=== PATIENT | male | born 1975 | race African-American/Black ===

== ENCOUNTER 2023-12-16 15:41 | Emergency (ER) | payer OTHER ==
[~2023-12-16] VITALS: Ht 182.9 cm; Wt 113.4 kg
[~2023-12-16 15:41] MED LIST: HYDR-5071 PO; IBUP-2218 PO
[2023-12-16 15:56] VITALS: BP 98/69; PULSE 106; RESP 16; TEMP 98; O2SAT 97
[2023-12-16] MEDS ORDERED: HAL5 PO (17:48)
[2023-12-16] MEDS ORDERED: LORA10TA19 PO (17:48)
[2023-12-16] MEDS ORDERED: LOSA-272 PO (17:48)
[2023-12-16] MEDS ORDERED: ESK300 PO ×2 (17:48)
[2023-12-16] MEDS ORDERED: OMEP20EC11 PO (17:48)
[2023-12-16] MEDS ORDERED: RISP0.5T3 PO (17:48)
[2023-12-16] MEDS ORDERED: DOCU-300 PO (17:48)
[2023-12-16] MEDS ORDERED: BENZ-283 PO (17:48)
[2023-12-16] MEDS ORDERED: QUET400T PO (17:48)
[2023-12-16] MEDS ORDERED: HAL2L IM (17:48)
[2023-12-16] MEDS ORDERED: CLON2TAB9 PO (17:48)
[2023-12-16] MEDS ORDERED: DIVA500T1 PO (17:48)
[2023-12-16] MEDS ORDERED: TRAZ-343 PO (17:48)
[2023-12-16] MEDS ORDERED: QUET200T PO (17:48)
[2023-12-16] MEDS ORDERED: [UNRECOGNIZED DRUG - CODE] PO (17:48)
[2023-12-16 18:03] LABS: BASOPHILS % (AUTO) 0.2 % (0.0-2.0); EOSINOPHILS % (AUTO) 0.4 % (0.0-4.0); HEMOGLOBIN 11.2 g/dL (12.0-18.0); LYMPHOCYTES # (AUTO) 1.6 K/uL (2.0-11.5); LYMPHOCYTES % (AUTO) 15.6 % (20.5-51.1); MEAN CORPUSCULAR HEMOGLOBIN 33 pg (27-31); MEAN CORPUSCULAR HGB CONC 34 g/dL (33-37); MEAN CORPUSCULAR VOLUME 96.9 fL (80-94); MONOCYTES # (AUTO) 1.7 K/uL (0.8-1.0); MONOCYTES % (AUTO) 16.7 % (1.7-9.3); NEUTROPHILS # (AUTO) 6.8 K/uL (1.8-7.7); NEUTROPHILS % (AUTO) 67.1 % (42.2-75.2); PLATELET COUNT (AUTO) 354 K/uL (140-450); RED BLOOD CELL COUNT(AUTO) 3.41 MIL/uL (4.20-6.10); RED CELL DISTRIBUTION WIDTH 13.1 % (11.6-13.7); WHITE BLOOD COUNT (AUTO) 10.1 K/uL (4.8-10.8)
[2023-12-16 18:07] LABS: APPEARANCE,URINE CLEAR (CLEAR); BILIRUBIN,URINE 2+ (NEGATIVE); BLOOD, URINE TRACE-I (NEGATIVE); COLOR,URINE YELLOW (YELLOW); LEUKOCYTE ESTERASE ,URINE 1+ (NEGATIVE); NITRITE, URINE POSITIVE (NEGATIVE); PROTEIN,URINE 2+ (NEGATIVE); UGLUCOSE NEGATIVE (NEGATIVE)
[2023-12-16 18:18] LABS: ICTOTEST NEGATIVE (NEGATIVE)
[2023-12-16 18:19] LABS: ALANINE AMINOTRANSFERASE 17 U/L (12-78); ALBUMIN 2.9 g/dL (3.4-5.0); ALKALINE PHOSPHATASE 147 U/L (50-136); ASPARTATE AMINOTRANSFERASE 25 U/L (15-37); BILIRUBIN,DIRECT 0.1 mg/dL (0.0-0.3); LIPASE 19 U/L (16-77); TOTAL BILIRUBIN 0.4 mg/dL (0.0-1.0); TOTAL PROTEIN, SERUM 7.3 g/dL (6.4-8.2)
[2023-12-16 18:20] LABS: BACTERIA,URINE 10-30 (MOD) /HPF (None Seen); RBC,URINE 0-5 /HPF (0-5); SQUAMOUS EPITHELIAL CELL,UR 4-10 (MOD) /LPF (0-3 (FEW))
[2023-12-16 18:25] LABS: ANION GAP 6.5 (8-16); CALCIUM 9.2 mg/dL (8.5-10.1); CARBON DIOXIDE 32.6 mmol/L (21-32); CREATININE 1.4 mg/dL (0.6-1.3); POTASSIUM 4.1 mmol/L (3.5-5.1)
[2023-12-16] MEDS ORDERED: AZIT250T4 PO (19:30)
[2023-12-16] MEDS ORDERED: MAGN296S70 PO (19:30)
[2023-12-16] MEDS ORDERED: CIPR500T4 PO (19:30)
[2023-12-16 20:00] VITALS: BP 116/68; PULSE 98; RESP 25; TEMP 98; O2SAT 100
== END 2023-12-16 20:00 | disposition home or self-care (01) ==
LOC: MED 15:41
DX: J18.9 Pneumonia, unspecified organism (principal); N39.0 Urinary tract infection, site not specified; K59.00 Constipation, unspecified; R41.0 Disorientation, unspecified; I10 Essential (primary) hypertension; Z79.899 Other long term (current) drug therapy
CPT/HCPCS: 36415; 70450; 71045; 80048; 80076; 81001; 83690; 84484; 85025; 87086; 87186; 93005; 99285

== ENCOUNTER 2023-12-21 13:03 | Observation (INO) | payer OTHER ==
[~2023-12-21] VITALS: Ht 177.8 cm; Wt 113.4 kg
[~2023-12-21 13:03] MED LIST changes: +AZIT250T4 PO; +BENZ-283 PO; +CIPR500T4 PO; +CLON2TAB9 PO; +DIVA500T1 PO; +DOCU-300 PO; +ESK300 PO; +HAL2L IM; +HAL5 PO; +LORA10TA19 PO; +LOSA-272 PO; +MAGN296S70 PO; +OMEP20EC11 PO; +QUET200T PO; +QUET400T PO; +RISP0.5T3 PO; +TRAZ-343 PO; +[UNRECOGNIZED DRUG - CODE] PO
[2023-12-21 13:17] VITALS: BP 151/102; PULSE 97; RESP 25; TEMP 96.4; O2SAT 96
[2023-12-21] MEDS ORDERED: cefTRIAXone 1,000 MG VIAL ONE (13:30)
[2023-12-21] MEDS: cefTRIAXone 1,000 MG in DEXT 5% MINI-BAG PLUS 50 ML IV ONE (13:54)
[2023-12-21] MEDS: NACL 0.9% 1,000 ML IV SCH ×2 (13:55→17:03)
[2023-12-21 14:13] LABS: BASOPHILS % (AUTO) 0.5 % (0.0-2.0); EOSINOPHILS # (AUTO) 0.1 K/uL (0-0.4); EOSINOPHILS % (AUTO) 1.1 % (0.0-4.0); HEMATOCRIT 33.2 % (36-52); HEMOGLOBIN 11.2 g/dL (12.0-18.0); LYMPHOCYTES # (AUTO) 1.3 K/uL (2.0-11.5); LYMPHOCYTES % (AUTO) 14.9 % (20.5-51.1); MEAN CORPUSCULAR HEMOGLOBIN 33 pg (27-31); MEAN CORPUSCULAR HGB CONC 34 g/dL (33-37); MEAN CORPUSCULAR VOLUME 97.1 fL (80-94); MONOCYTES % (AUTO) 12.4 % (1.7-9.3); NEUTROPHILS % (AUTO) 71.1 % (42.2-75.2); PLATELET COUNT (AUTO) 299 K/uL (140-450); RED BLOOD CELL COUNT(AUTO) 3.43 MIL/uL (4.20-6.10); RED CELL DISTRIBUTION WIDTH 12.8 % (11.6-13.7); WHITE BLOOD COUNT (AUTO) 8.4 K/uL (4.8-10.8)
[2023-12-21 14:40] LABS: ANION GAP 7.8 (8-16); CALCIUM 8.7 mg/dL (8.5-10.1); CARBON DIOXIDE 30.8 mmol/L (21-32); POTASSIUM 4.6 mmol/L (3.5-5.1)
[2023-12-21 14:52] LABS: LACTIC ACID 2.1 mmol/L (0.4-2.0)
[2023-12-21 14:59] LABS: BILIRUBIN,URINE NEGATIVE (NEGATIVE); BLOOD, URINE NEGATIVE (NEGATIVE); COLOR,URINE YELLOW (YELLOW); LEUKOCYTE ESTERASE ,URINE NEGATIVE (NEGATIVE); NITRITE, URINE NEGATIVE (NEGATIVE); PROTEIN,URINE 1+ (NEGATIVE); UGLUCOSE NEGATIVE (NEGATIVE)
[2023-12-21 15:01] LABS: APPEARANCE,URINE SLIGHTLY HAZY (CLEAR)
[2023-12-21 15:03] LABS: BACTERIA,URINE 0-2 /HPF (None Seen); MUCUS,URINE None Seen /LPF (None Seen); RBC,URINE 0-5 /HPF (0-5); SQUAMOUS EPITHELIAL CELL,UR 0-3 (FEW) /LPF (0-3 (FEW)); WBC,URINE 0 /HPF (0-5)
[2023-12-21] MEDS: NACL 0.9% 1,000 ML IV ONE (15:26)
[2023-12-21] MEDS ORDERED: MAG SULF 2000 MG/WATER PREMIX 50 ML IV PRN (16:15)
[2023-12-21] MEDS ORDERED: ONDANSETRON 4 MG/2 ML VIAL IVP PRN (16:15)
[2023-12-21] MEDS ORDERED: MORPHINE SULFATE 4 MG/ML SYR IVP PRN (16:15)
[2023-12-21] MEDS ORDERED: HYDROcodone/APAP 5/325 MG 1 TAB TAB PO PRN (16:15)
[2023-12-21] MEDS ORDERED: MAGNESIUM OXIDE 400 MG TAB PO PRN (16:15)
[2023-12-21] MEDS ORDERED: KCL 20 MEQ IN 100 mL PREMIX 200 ML IV PRN (16:15)
[2023-12-21] MEDS ORDERED: POTASSIUM CHLORIDE 10 MEQ TABER PO PRN (16:15)
[2023-12-21 16:29] LABS: FLU A ANTIGEN negative (NEGATIVE); FLU B ANTIGEN NEGATIVE (NEGATIVE)
[2023-12-21] MEDS ORDERED: AZITHROMYCIN 500 MG INJ VIAL IV ONE (16:55)
[2023-12-21] MEDS: AZITHROMYCIN 500 MG in DEXTROSE 5% 250 ML IV SCH (16:57)
[2023-12-21 18:14] VITALS: PULSE 94
[2023-12-21 19:00] VITALS: PULSE 91; RESP 21; O2SAT 95
[2023-12-21 20:00] VITALS: BP 121/78; PULSE 91; RESP 19; TEMP 96.8; O2SAT 97
[2023-12-21 20:03] VITALS: PULSE 88
[2023-12-22] VITALS (8 sets, daily range): BP systolic 121–140; BP diastolic 57–90; PULSE 88–107; RESP 18–19; TEMP 97.2–99; O2SAT 97–99
[2023-12-22 05:14] LABS: BASOPHILS % (AUTO) 0.4 % (0.0-2.0); EOSINOPHILS # (AUTO) 0.2 K/uL (0-0.4); EOSINOPHILS % (AUTO) 3.4 % (0.0-4.0); HEMATOCRIT 33.5 % (36-52); HEMOGLOBIN 11.2 g/dL (12.0-18.0); LYMPHOCYTES # (AUTO) 1.7 K/uL (2.0-11.5); LYMPHOCYTES % (AUTO) 30.9 % (20.5-51.1); MEAN CORPUSCULAR HEMOGLOBIN 33 pg (27-31); MEAN CORPUSCULAR HGB CONC 33 g/dL (33-37); MEAN CORPUSCULAR VOLUME 97.2 fL (80-94); MONOCYTES # (AUTO) 0.8 K/uL (0.8-1.0); MONOCYTES % (AUTO) 15.1 % (1.7-9.3); NEUTROPHILS # (AUTO) 2.8 K/uL (1.8-7.7); NEUTROPHILS % (AUTO) 50.2 % (42.2-75.2); PLATELET COUNT (AUTO) 292 K/uL (140-450); RED BLOOD CELL COUNT(AUTO) 3.45 MIL/uL (4.20-6.10); RED CELL DISTRIBUTION WIDTH 13.1 % (11.6-13.7); WHITE BLOOD COUNT (AUTO) 5.5 K/uL (4.8-10.8)
[2023-12-22 05:34] LABS: ALBUMIN 2.8 g/dL (3.4-5.0); CALCIUM 8.5 mg/dL (8.5-10.1); CARBON DIOXIDE 26.2 mmol/L (21-32); CREATININE 0.9 mg/dL (0.6-1.3); MAGNESIUM 2.1 mg/dL (1.8-2.4); POTASSIUM 4.2 mmol/L (3.5-5.1); TOTAL BILIRUBIN 0.3 mg/dL (0.0-1.0); TOTAL PROTEIN, SERUM 6.8 g/dL (6.4-8.2)
[2023-12-22] MEDS ORDERED: LEVO-481 PO (16:40)
[2023-12-22] MEDS ORDERED: MEDS-TO-BEDS MC SCH (21:00)
== END 2023-12-22 19:00 | disposition home or self-care (01) ==
LOC: MED 13:03 → MTU 16:17
PROVIDERS: ADMIT Hospitalist; ATTEND Hospitalist
DX: G93.40 Encephalopathy, unspecified (principal); Z20.822 Contact with and (suspected) exposure to COVID-19; J18.1 Lobar pneumonia, unspecified organism; F20.9 Schizophrenia, unspecified; I10 Essential (primary) hypertension; E87.20 Acidosis, unspecified; Z79.899 Other long term (current) drug therapy
CPT/HCPCS: 36415; 70450; 71045; 80048; 80053; 81001; 83605; 83735; 83880; 84484; 85025; 87040; 87081; 87086; 87426; 87804; 93005; 94760; 96361; 96365; 96366; 96367; 96372; 97163; 97530; 99291; G0378; J0456; J0696; J1644; J7060

== ENCOUNTER 2023-12-29 13:24 | Emergency (ER) | payer OTHER ==
[~2023-12-29] VITALS: Ht 180.3 cm; Wt 112.5 kg
[~2023-12-29 13:24] MED LIST changes: -AZIT250T4 PO; -CIPR500T4 PO; +LEVO-481 PO
[2023-12-29 13:30] VITALS: BP 125/70; PULSE 107; RESP 16; TEMP 98.1; O2SAT 98
[2023-12-29] MEDS: NACL 0.9% 1,000 ML IV ONE (13:40)
[2023-12-29 14:06] LABS: BASOPHILS % (AUTO) 0.5 % (0.0-2.0); EOSINOPHILS # (AUTO) 0.1 K/uL (0-0.4); EOSINOPHILS % (AUTO) 2.1 % (0.0-4.0); HEMATOCRIT 33.7 % (36-52); HEMOGLOBIN 11.2 g/dL (12.0-18.0); LYMPHOCYTES # (AUTO) 1.3 K/uL (2.0-11.5); LYMPHOCYTES % (AUTO) 31.5 % (20.5-51.1); MEAN CORPUSCULAR HEMOGLOBIN 32 pg (27-31); MEAN CORPUSCULAR HGB CONC 33 g/dL (33-37); MEAN CORPUSCULAR VOLUME 96.5 fL (80-94); MONOCYTES # (AUTO) 0.7 K/uL (0.8-1.0); MONOCYTES % (AUTO) 17.9 % (1.7-9.3); PLATELET COUNT (AUTO) 239 K/uL (140-450); RED BLOOD CELL COUNT(AUTO) 3.49 MIL/uL (4.20-6.10); RED CELL DISTRIBUTION WIDTH 13.1 % (11.6-13.7); WHITE BLOOD COUNT (AUTO) 4.1 K/uL (4.8-10.8)
[2023-12-29 14:25] LABS: INR 0.99 (0.8-1.2); PARTIAL THROMBOPLASTIN TIME 26.6 secs (22-35.6); PROTHROMBIN TIME 10.4 secs (10.8-13.4)
[2023-12-29 14:29] LABS: LACTIC ACID 1.3 mmol/L (0.4-2.0)
[2023-12-29 14:31] LABS: ALANINE AMINOTRANSFERASE 21 U/L (12-78); ALBUMIN 2.7 g/dL (3.4-5.0); ALKALINE PHOSPHATASE 149 U/L (50-136); ASPARTATE AMINOTRANSFERASE 17 U/L (15-37); BILIRUBIN,DIRECT 0.1 mg/dL (0.0-0.3); CREATINE KINASE, TOTAL 70 U/L (39-308); TOTAL BILIRUBIN 0.3 mg/dL (0.0-1.0); TOTAL PROTEIN, SERUM 7.3 g/dL (6.4-8.2)
[2023-12-29 14:32] LABS: ALCOHOL, BLOOD < 3 mg/dL (<10)
[2023-12-29 14:35] LABS: FLU A ANTIGEN negative (NEGATIVE); FLU B ANTIGEN negative (NEGATIVE)
[2023-12-29 14:49] LABS: ANION GAP 10.7 (8-16); CALCIUM 8.8 mg/dL (8.5-10.1); CARBON DIOXIDE 27.6 mmol/L (21-32); POTASSIUM 4.3 mmol/L (3.5-5.1)
[2023-12-29 15:54] LABS: APPEARANCE,URINE CLEAR (CLEAR); BILIRUBIN,URINE NEGATIVE (NEGATIVE); BLOOD, URINE TRACE-I (NEGATIVE); COLOR,URINE YELLOW (YELLOW); LEUKOCYTE ESTERASE ,URINE NEGATIVE (NEGATIVE); NITRITE, URINE NEGATIVE (NEGATIVE); PH,URINE 7.5 (5.0-9.0); PROTEIN,URINE NEGATIVE (NEGATIVE); UGLUCOSE NEGATIVE (NEGATIVE); UROBILINOGEN,URINE 0.2 EU/dL (0.2 - 1)
[2023-12-29 16:21] LABS: BACTERIA,URINE FEW /HPF (None Seen); RBC,URINE 0-5 /HPF (0-5); SQUAMOUS EPITHELIAL CELL,UR 0-3 (FEW) /LPF (0-3 (FEW)); WBC,URINE 0-5 /HPF (0-5)
[2023-12-29 17:15] VITALS: BP 122/80; PULSE 91; RESP 19; TEMP 98.1; O2SAT 96
== END 2023-12-29 17:16 | disposition home or self-care (01) ==
LOC: MED 13:24
DX: F29 Unspecified psychosis not due to a substance or known physiological condition (principal); Z20.822 Contact with and (suspected) exposure to COVID-19; K21.9 Gastro-esophageal reflux disease without esophagitis; Z79.899 Other long term (current) drug therapy; I10 Essential (primary) hypertension
CPT/HCPCS: 36415; 70450; 71045; 80048; 80076; 81001; 82140; 82550; 82948; 83605; 83880; 84484; 85025; 85610; 85730; 87040; 87086; 87426; 87804; 93005; 96360; 99285; G0482; J7030

== ENCOUNTER 2024-01-02 12:13 | Inpatient (IN) | payer OTHER ==
[~2024-01-02] VITALS: Ht 180.3 cm; Wt 118.8 kg
[2024-01-02 12:17] VITALS: BP 149/88; PULSE 100; RESP 16; TEMP 97.4; O2SAT 98
[2024-01-02 14:09] LABS: ANION GAP 10.9 (8-16); BASOPHILS % (AUTO) 0.6 % (0.0-2.0); CALCIUM 8.9 mg/dL (8.5-10.1); CHLORIDE 103 mmol/L (98-107); CREATININE 0.8 mg/dL (0.6-1.3); EOSINOPHILS # (AUTO) 0.1 K/uL (0-0.4); EOSINOPHILS % (AUTO) 3.1 % (0.0-4.0); GFR ARICAN-AMERICAN 132 mL/min (>90); GFR NON ARICAN-AMERICAN 109 mL/min (>90); GLUCOSE 94 mg/dL (74-106); HEMOGLOBIN 11.5 g/dL (12.0-18.0); LYMPHOCYTES # (AUTO) 1.2 K/uL (2.0-11.5); MEAN CORPUSCULAR HEMOGLOBIN 32 pg (27-31); MEAN CORPUSCULAR HGB CONC 33 g/dL (33-37); MEAN CORPUSCULAR VOLUME 98.2 fL (80-94); MONOCYTES # (AUTO) 0.8 K/uL (0.8-1.0); MONOCYTES % (AUTO) 20.7 % (1.7-9.3); NEUTROPHILS # (AUTO) 1.8 K/uL (1.8-7.7); NEUTROPHILS % (AUTO) 45.6 % (42.2-75.2); PLATELET COUNT (AUTO) 212 K/uL (140-450); POTASSIUM 4.9 mmol/L (3.5-5.1); RED BLOOD CELL COUNT(AUTO) 3.57 MIL/uL (4.20-6.10); RED CELL DISTRIBUTION WIDTH 13.7 % (11.6-13.7); SODIUM SERUM 137 mmol/L (136-145); UREA NITROGEN, BLOOD 5 mg/dL (7-18); WHITE BLOOD COUNT (AUTO) 3.9 K/uL (4.8-10.8)
[2024-01-02 14:32] LABS: LACTIC ACID 1.7 mmol/L (0.4-2.0)
[2024-01-02] MEDS ORDERED: cefTRIAXone 1,000 MG VIAL ONE (14:35)
[2024-01-02 14:55] LABS: ALANINE AMINOTRANSFERASE 12 U/L (12-78); ALBUMIN 2.8 g/dL (3.4-5.0); ALKALINE PHOSPHATASE 169 U/L (50-136); ASPARTATE AMINOTRANSFERASE 25 U/L (15-37); TOTAL BILIRUBIN 0.3 mg/dL (0.0-1.0); TOTAL PROTEIN, SERUM 7.4 g/dL (6.4-8.2)
[2024-01-02 14:56] LABS: ACETAMINOPHEN < 0.5 ug/ml (10-30); ALCOHOL, BLOOD < 3 mg/dL (<10); SALICYLATE < 2.8 mg/dL (2.8-20.0)
[2024-01-02] MEDS ORDERED: VANCOMYCIN PER PHARMACY MC PRN (15:15)
[2024-01-02] MEDS ORDERED: ONDANSETRON 4 MG/2 ML VIAL IVP PRN (15:15)
[2024-01-02] MEDS ORDERED: KCL 20 MEQ IN 100 mL PREMIX 200 ML IV PRN (15:15)
[2024-01-02] MEDS ORDERED: LORazepam 1 MG TAB PO PRN (15:15)
[2024-01-02] MEDS ORDERED: ACETAMINOPHEN 325 MG TAB PO PRN (15:15)
[2024-01-02] MEDS ORDERED: HYDROcodone/APAP 5/325 MG 1 TAB TAB PO PRN (15:15)
[2024-01-02] MEDS ORDERED: POTASSIUM CHLORIDE 10 MEQ TABER PO PRN (15:15)
[2024-01-02] MEDS ORDERED: ZOLPIDEM 5 MG TAB PO PRN (15:15)
[2024-01-02] MEDS ORDERED: MAG SULF 2000 MG/WATER PREMIX 50 ML IV PRN (15:15)
[2024-01-02] MEDS: NACL 0.9% 1,000 ML IV SCH (15:45)
[2024-01-02] MEDS: MORPHINE SULFATE 4 MG/ML SYR IVP PRN (15:53)
[2024-01-02] MEDS ORDERED: ACET-9520 PO (17:33)
[2024-01-02] MEDS ORDERED: CHOL100030 PO (17:33)
[2024-01-02] MEDS ORDERED: ALBU0.0912 IH (17:33)
[2024-01-02] MEDS ORDERED: [UNRECOGNIZED DRUG - CODE] PO (17:33)
[2024-01-02] MEDS ORDERED: [UNRECOGNIZED DRUG - CODE] NS (17:33)
[2024-01-02] MEDS ORDERED: METH-1681 PO (17:33)
[2024-01-02] MEDS ORDERED: PROM473S5 PO (17:33)
[2024-01-02] MEDS ORDERED: POLY17PD65 PO (17:33)
[2024-01-02] MEDS ORDERED: ASPI-1822 PO (17:33)
[2024-01-02] MEDS ORDERED: BACI-418 TP (17:33)
[2024-01-02] MEDS: AZITHROMYCIN 500 MG in DEXTROSE 5% 250 ML IV SCH (18:35)
[2024-01-02 19:00] VITALS: PULSE 84; RESP 20; O2SAT 97
[2024-01-02 19:22] VITALS: BP 118/60; PULSE 84; RESP 18; TEMP 98.5; O2SAT 97
[2024-01-02] MEDS: VANCOMYCIN 1.25GM PREMIX 250 ML IV SCH (20:50)
[2024-01-03] MEDS: PIPERACILLIN/TAZOBACTAM 3.375 GM in DEXTROSE 5% 50 ML IV SCH
[2024-01-03] MEDS: PIPERACILLIN/TAZOBACTAM 3.375 GM VIAL IV ONE ×2 (00:32→06:23)
[2024-01-03 04:00] VITALS: BP 110/61; PULSE 84; RESP 18; TEMP 98.3; O2SAT 97
[2024-01-03 05:11] LABS: APPEARANCE,URINE CLEAR (CLEAR); BILIRUBIN,URINE NEGATIVE (NEGATIVE); BLOOD, URINE NEGATIVE (NEGATIVE); COLOR,URINE YELLOW (YELLOW); LEUKOCYTE ESTERASE ,URINE NEGATIVE (NEGATIVE); NITRITE, URINE NEGATIVE (NEGATIVE); PH,URINE 6.5 (5.0-9.0); PROTEIN,URINE NEGATIVE (NEGATIVE); UGLUCOSE NEGATIVE (NEGATIVE); UROBILINOGEN,URINE 0.2 EU/dL (0.2 - 1)
[2024-01-03 05:17] LABS: BASOPHILS % (AUTO) 0.5 % (0.0-2.0); EOSINOPHILS # (AUTO) 0.1 K/uL (0-0.4); EOSINOPHILS % (AUTO) 4.1 % (0.0-4.0); HEMATOCRIT 34.1 % (36-52); LYMPHOCYTES # (AUTO) 1.5 K/uL (2.0-11.5); LYMPHOCYTES % (AUTO) 41.2 % (20.5-51.1); MEAN CORPUSCULAR HEMOGLOBIN 32 pg (27-31); MEAN CORPUSCULAR HGB CONC 32 g/dL (33-37); MEAN CORPUSCULAR VOLUME 98.8 fL (80-94); MONOCYTES # (AUTO) 0.7 K/uL (0.8-1.0); MONOCYTES % (AUTO) 19.8 % (1.7-9.3); NEUTROPHILS # (AUTO) 1.2 K/uL (1.8-7.7); NEUTROPHILS % (AUTO) 34.4 % (42.2-75.2); PLATELET COUNT (AUTO) 189 K/uL (140-450); RED BLOOD CELL COUNT(AUTO) 3.45 MIL/uL (4.20-6.10); RED CELL DISTRIBUTION WIDTH 13.7 % (11.6-13.7); WHITE BLOOD COUNT (AUTO) 3.5 K/uL (4.8-10.8)
[2024-01-03 05:25] LABS: AMPHETAMINE, URINE NEGATIVE ng/ml (NEG <=1000); BARBITURATE, URINE NEGATIVE ng/ml (NEG <=200); BENZODIAZEPINE, URINE NEGATIVE ng/mL (NEG <=200); CANNABINOID, URINE NEGATIVE ng/mL (NEG <=50); COCAINE, URINE NEGATIVE ng/mL (NEG <=300); OPIATE, URINE POSITIVE ng/mL (NEG <=2000); PHENCYCLIDINE SCREEN,URINE NEGATIVE ng/mL (NEG <=25)
[2024-01-03 05:32] LABS: ANION GAP 11.3 (8-16); CALCIUM 8.6 mg/dL (8.5-10.1); CARBON DIOXIDE 27.5 mmol/L (21-32); CREATININE 0.8 mg/dL (0.6-1.3); POTASSIUM 4.8 mmol/L (3.5-5.1)
[2024-01-03 08:00] VITALS: BP 121/79; PULSE 94; RESP 18; TEMP 97.2; O2SAT 97
[2024-01-03 08:30] VITALS: RESP 16
[2024-01-03] MEDS: HALOPERIDOL 5 MG TAB PO SCH (09:38)
[2024-01-03] MEDS: QUEtiapine FUMARATE 100 MG TAB PO SCH ×2 (09:38→21:50)
[2024-01-03] MEDS: DIVALPROEX 500 MG TABER PO SCH (09:39)
[2024-01-03] MEDS: LITHIUM CARBONATE 300 MG TAB PO SCH ×2 (09:39→18:38)
[2024-01-03] MEDS: DOCUSATE SODIUM 100 MG GELCAP PO SCH (09:39)
[2024-01-03] MEDS: ENOXAPARIN 40 MG/0.4 ML SYR SUBQ SCH (09:43)
[2024-01-03] MEDS: ASPIRIN 81 MG TAB.CHEW PO SCH (09:45)
[2024-01-03 12:00] VITALS: BP 119/66; PULSE 88; RESP 17; TEMP 98.1; O2SAT 98
[2024-01-03 16:00] VITALS: BP 126/72; PULSE 96; RESP 17; TEMP 96.7; O2SAT 98
[2024-01-03 20:00] VITALS: BP 145/86; PULSE 102; RESP 19; TEMP 98.4; O2SAT 95
[2024-01-03] MEDS: risperiDONE 1 MG TAB PO SCH (21:49)
[2024-01-03] MEDS: traZODone 50 MG TAB PO SCH (21:49)
[2024-01-03] MEDS: MEDS-TO-BEDS MC SCH (21:51)
[2024-01-04 04:00] VITALS: BP 128/83; PULSE 93; RESP 19; TEMP 97.3; O2SAT 99
[2024-01-04 04:14] LABS: BASOPHILS % (AUTO) 0.5 % (0.0-2.0); EOSINOPHILS # (AUTO) 0.1 K/uL (0-0.4); EOSINOPHILS % (AUTO) 3.3 % (0.0-4.0); HEMATOCRIT 33.5 % (36-52); HEMOGLOBIN 10.9 g/dL (12.0-18.0); LYMPHOCYTES # (AUTO) 1.6 K/uL (2.0-11.5); LYMPHOCYTES % (AUTO) 37.5 % (20.5-51.1); MEAN CORPUSCULAR HEMOGLOBIN 32 pg (27-31); MEAN CORPUSCULAR HGB CONC 33 g/dL (33-37); MEAN CORPUSCULAR VOLUME 96.5 fL (80-94); MONOCYTES # (AUTO) 0.9 K/uL (0.8-1.0); MONOCYTES % (AUTO) 19.9 % (1.7-9.3); NEUTROPHILS # (AUTO) 1.7 K/uL (1.8-7.7); NEUTROPHILS % (AUTO) 38.8 % (42.2-75.2); PLATELET COUNT (AUTO) 195 K/uL (140-450); RED BLOOD CELL COUNT(AUTO) 3.47 MIL/uL (4.20-6.10); RED CELL DISTRIBUTION WIDTH 13.5 % (11.6-13.7); WHITE BLOOD COUNT (AUTO) 4.4 K/uL (4.8-10.8)
[2024-01-04 04:44] LABS: ANION GAP 10.1 (8-16); CARBON DIOXIDE 30.3 mmol/L (21-32); CREATININE 0.9 mg/dL (0.6-1.3); POTASSIUM 4.4 mmol/L (3.5-5.1)
[2024-01-04 08:00] VITALS: BP 147/69; PULSE 97; RESP 18; TEMP 96.8; O2SAT 99
[2024-01-04] MEDS ORDERED: HYDRAGUARD CREAM TP PRN (10:10)
[2024-01-04] MEDS: HYDRAGUARD CREAM TP SCH (13:54)
[2024-01-04] MEDS ORDERED: AMOX-1230 PO (14:06)
[2024-01-04] MEDS ORDERED: DOXY-690 PO (14:08)
[2024-01-04 15:32] VITALS: BP 147/69; PULSE 97; RESP 18; TEMP 96.9
[2024-01-09] MEDS ORDERED: GAUZE TP SCH (09:00)
== END 2024-01-04 17:32 | disposition home or self-care (01) | DRG 721 ==
LOC: MED 12:13 → MMU 15:14 → MTU 17:30
PROVIDERS: ADMIT Internal Medicine; ATTEND Internal Medicine
DX: T81.40XA Infection following a procedure, unspecified, initial encounter (principal); J69.0 Pneumonitis due to inhalation of food and vomit; A41.9 Sepsis, unspecified organism; G93.41 Metabolic encephalopathy; E44.0 Moderate protein-calorie malnutrition; L03.116 Cellulitis of left lower limb; F20.9 Schizophrenia, unspecified; D64.9 Anemia, unspecified; K21.9 Gastro-esophageal reflux disease without esophagitis; G40.909 Epilepsy, unspecified, not intractable, without status epilepticus; Z79.899 Other long term (current) drug therapy; Z68.36 Body mass index [BMI] 36.0-36.9, adult
CPT/HCPCS: 36415; 70450; 71045; 73610; 80048; 80053; 80202; 80305; 81003; 82140; 83605; 83735; 84484; 85025; 87040; 87081; 93005; 96365; 96375; 99285; G0480; G0482; J0456; J0696; J1630; J1650; J2270; J2543; J3372; J7060